=== PATIENT | male | born 1990 | race Caucasian/White ===

== ENCOUNTER 2021-10-08 15:50 | Emergency (ER) | payer SELFPAY | END 2021-10-08 19:06 | disposition left against medical advice (07) | LOC: ER1 15:50 | DX: J06.9 Acute upper respiratory infection, unspecified (principal); Z20.822 Contact with and (suspected) exposure to COVID-19; F17.200 Nicotine dependence, unspecified, uncomplicated; Z88.0 Allergy status to penicillin | CPT/HCPCS: 87081; 87880; 99283; U0002 ==